=== PATIENT | male | born 1980 | race Caucasian/White ===

== ENCOUNTER 2017-10-06 23:02 | Emergency (ER) | payer MEDICAID ==
[~2017-10-06] VITALS: Ht 182.9 cm; Wt 143.5 kg
[~2017-10-06 23:02] MED LIST: RANI-366 PO
[2017-10-07 02:48] VITALS: BP 147/98
[2017-10-07] MEDS ORDERED: AMOX500C2 PO (03:56)
== END 2017-10-07 04:10 | disposition home or self-care (01) ==
LOC: ER 23:02
DX: K08.89 Other specified disorders of teeth and supporting structures (principal); Z88.5 Allergy status to narcotic agent; Z79.899 Other long term (current) drug therapy; Z56.0 Unemployment, unspecified
CPT/HCPCS: 99283

== ENCOUNTER 2017-10-14 09:41 | Emergency (ER) | payer MEDICAID ==
[~2017-10-14] VITALS: Ht 182.9 cm; Wt 136.4 kg
[~2017-10-14 09:41] MED LIST changes: +AMOX500C2 PO
[2017-10-14 09:45] VITALS: BP 158/79
== END 2017-10-14 10:18 | disposition home or self-care (01) ==
LOC: ER 09:42
DX: S61.213A Laceration without foreign body of left middle finger without damage to nail, initial encounter (principal); Z98.890 Other specified postprocedural states; Z56.0 Unemployment, unspecified; Z88.5 Allergy status to narcotic agent; Z79.899 Other long term (current) drug therapy; W26.0XXA Contact with knife, initial encounter; Y93.89 Activity, other specified; Y92.89 Other specified places as the place of occurrence of the external cause; Y99.8 Other external cause status
CPT/HCPCS: 12001; 99283; A6255

== ENCOUNTER 2017-11-18 20:33 | Emergency (ER) | payer MEDICAID ==
[~2017-11-18] VITALS: Ht 182.9 cm; Wt 149.2 kg
[~2017-11-18 20:33] MED LIST changes: -AMOX500C2 PO
[2017-11-18 22:07] VITALS: BP 165/115
[2017-11-18] MEDS ORDERED: acetaminophen 325mg tablet PO ONE (23:15)
== END 2017-11-18 23:30 | disposition home or self-care (01) ==
LOC: ER 20:34
DX: S46.012A Strain of muscle(s) and tendon(s) of the rotator cuff of left shoulder, initial encounter (principal); M75.22 Bicipital tendinitis, left shoulder; Z56.0 Unemployment, unspecified; Z98.890 Other specified postprocedural states; X58.XXXA Exposure to other specified factors, initial encounter; Y93.89 Activity, other specified; Y92.89 Other specified places as the place of occurrence of the external cause; Y99.8 Other external cause status
CPT/HCPCS: 29105; 99283; A4565; L3650

== ENCOUNTER 2018-01-27 11:17 | Emergency (ER) | payer MEDICAID ==
[~2018-01-27] VITALS: Ht 182.9 cm; Wt 150.0 kg
[~2018-01-27 11:17] MED LIST changes: +FLO0.4C PO; +METO25TA6 PO; +OXYC-150 PO; -RANI-366 PO
[2018-01-27 11:25] VITALS: BP 155/111
[2018-01-27] MEDS ORDERED: ketorolac tromethamine 15mg/ml inj. IM ONE (12:10)
[2018-01-27] MEDS ORDERED: NAPR-56 PO (12:14)
== END 2018-01-27 12:32 | disposition home or self-care (01) ==
LOC: ER 11:18
DX: M76.62 Achilles tendinitis, left leg (principal); Z56.0 Unemployment, unspecified; Z98.890 Other specified postprocedural states; Z88.5 Allergy status to narcotic agent; Z79.1 Long term (current) use of non-steroidal anti-inflammatories (NSAID); Z79.899 Other long term (current) drug therapy
CPT/HCPCS: 73630; 96372; 99284; J1885

== ENCOUNTER 2018-02-26 17:02 | Emergency (ER) | payer MEDICAID ==
[~2018-02-26] VITALS: Ht 182.9 cm; Wt 150.8 kg
[~2018-02-26 17:02] MED LIST changes: -FLO0.4C PO; +NAPR-56 PO
[2018-02-26 17:10] VITALS: BP 160/101
[2018-02-26] MEDS ORDERED: TOBR5DRO2 RIGHTEYE (17:24)
== END 2018-02-26 17:35 | disposition home or self-care (01) ==
LOC: ER 17:02
DX: H10.9 Unspecified conjunctivitis (principal); Z56.0 Unemployment, unspecified; Z87.442 Personal history of urinary calculi; Z88.6 Allergy status to analgesic agent
CPT/HCPCS: 99283

== ENCOUNTER 2018-06-11 19:57 | Emergency (ER) | payer MEDICAID ==
[~2018-06-11] VITALS: Ht 182.9 cm; Wt 147.0 kg
[~2018-06-11 19:57] MED LIST changes: -NAPR-56 PO; +TOBR5DRO2 RIGHTEYE
[2018-06-11 20:11] VITALS: BP 146/103
[2018-06-11] MEDS ORDERED: IBUP-1985 PO (21:43)
== END 2018-06-11 22:05 | disposition home or self-care (01) ==
LOC: ER 19:59
DX: S90.32XA Contusion of left foot, initial encounter (principal); Z98.890 Other specified postprocedural states; Z56.0 Unemployment, unspecified; Z88.5 Allergy status to narcotic agent; Z79.899 Other long term (current) drug therapy; X58.XXXA Exposure to other specified factors, initial encounter; Y93.89 Activity, other specified; Y92.89 Other specified places as the place of occurrence of the external cause; Y99.8 Other external cause status
CPT/HCPCS: 73630; 99283

== ENCOUNTER 2018-08-19 18:51 | Emergency (ER) | payer MEDICAID ==
[~2018-08-19] VITALS: Ht 182.9 cm; Wt 119.0 kg
[~2018-08-19 18:51] MED LIST changes: +IBUP-1985 PO
[2018-08-19 19:00] VITALS: BP 157/109
[2018-08-19] MEDS ORDERED: ketorolac trometh inj. 60 MG/2 ML VIAL IM ONE (20:50)
== END 2018-08-19 21:06 | disposition home or self-care (01) ==
LOC: ER 18:52
DX: M25.561 Pain in right knee (principal); Z56.0 Unemployment, unspecified; Z88.6 Allergy status to analgesic agent
CPT/HCPCS: 73564; 96372; 99284; J1885

== ENCOUNTER 2019-01-06 14:30 | Emergency (ER) | payer MEDICAID ==
[~2019-01-06] VITALS: Ht 182.9 cm; Wt 145.4 kg
[~2019-01-06 14:30] MED LIST changes: -IBUP-1985 PO; -METO25TA6 PO; +NO HOME MEDS; -OXYC-150 PO; -TOBR5DRO2 RIGHTEYE
[2019-01-06] MEDS ORDERED: ketorolac trometh. 30mg/ml inj. IM ONE (15:00)
[2019-01-06 15:19] LABS: BASOPHILS # (AUTO) 0.1 X10'3 (0-0.2); BASOPHILS % (AUTO) 0.8 % (0-1); EOSINOPHILS # (AUTO) 0.1 X10'3 (0-0.9); EOSINOPHILS % (AUTO) 1.3 % (0-6); HEMATOCRIT 45.8 % (42.0-52.0); HEMOGLOBIN 15.5 g/dl (14.0-17.9); LYMPHOCYTES # (AUTO) 1.6 X10'3 (1.1-4.8); LYMPHOCYTES % (AUTO) 17.1 % (21-51); MEAN CORPUSCULAR HEMOGLOBIN 28.9 PG (27.0-31.0); MEAN CORPUSCULAR HGB CONC 33.9 g/dL (33.0-36.5); MEAN CORPUSCULAR VOLUME 85.2 FL (78-98); MEAN PLATELET VOLUME 9.7 FL (7.4-10.4); MONOCYTES # (AUTO) 1.2 X10'3 (0-0.9); MONOCYTES % (AUTO) 12.1 % (2-12); NEUTROPHILS # (AUTO) 6.6 X10'3 (1.8-7.7); NEUTROPHILS % (AUTO) 68.7 % (42-75); PLATELET COUNT 166 X10'3 (140-440); RED BLOOD COUNT 5.38 X10'6 (4.70-6.10); WHITE BLOOD COUNT 9.6 X10'3 (4.5-11.0)
[2019-01-06] MEDS ORDERED: normal saline 1000ML IV soln IVB ONE (15:20)
[2019-01-06 15:32] LABS: ALANINE AMINOTRANSFERASE 64 U/L (12-78); ALBUMIN 3.6 G/DL (3.4-5.0); ALBUMIN/GLOBULIN RATIO 0.9 (1.1-1.5); ALKALINE PHOSPHATASE 77 IU/L (46-116); ANION GAP 9 (8-16); ASPARTATE AMINO TRANSFERASE 15 U/L (10-37); BILIRUBIN,TOTAL 0.4 MG/DL (0.1-1.0); BLOOD UREA NITROGEN 15 MG/DL (7-18); BUN/CREATININE RATIO 16.3 (5.4-32.0); CALCIUM 9.3 MG/DL (8.5-10.1); CHLORIDE 101 MMOL/L (99-107); CREATININE 0.92 MG/DL (0.60-1.10); GLUCOSE 114 MG/DL (70-104); POTASSIUM 4.3 MMOL/L (3.5-5.1); SODIUM 137 MMOL/L (135-145); TOTAL CARBON DIOXIDE 26.8 MMOL/L (24-32); TOTAL PROTEIN 7.7 G/DL (6.4-8.2); eGFR > 90 ML/MIN
[2019-01-06] MEDS ORDERED: BENZ-16 PO (15:38)
[2019-01-06 16:11] VITALS: BP 130/80
== END 2019-01-06 16:12 | disposition home or self-care (01) ==
LOC: ER 14:31
DX: R07.89 Other chest pain (principal); R05 Cough; R09.3 Abnormal sputum; R06.02 Shortness of breath; F10.99 Alcohol use, unspecified with unspecified alcohol-induced disorder; Z87.442 Personal history of urinary calculi; Z98.890 Other specified postprocedural states; Z88.5 Allergy status to narcotic agent; Z56.0 Unemployment, unspecified; Y90.9 Presence of alcohol in blood, level not specified
CPT/HCPCS: 36415; 71046; 80053; 83605; 85025; 87040; 93005; 96372; 99284; J1885; J7030

== ENCOUNTER 2019-03-15 12:25 | Emergency (ER) | payer MEDICAID ==
[~2019-03-15] VITALS: Ht 182.9 cm; Wt 147.7 kg
[2019-03-15] MEDS ORDERED: ketorolac tromethamine 15mg/ml inj. IM ONE (13:20)
[2019-03-15 13:39] VITALS: BP 139/91
== END 2019-03-15 13:46 | disposition home or self-care (01) ==
LOC: ER 12:26
DX: G57.61 Lesion of plantar nerve, right lower limb (principal); Z88.5 Allergy status to narcotic agent; Z87.442 Personal history of urinary calculi; Z98.890 Other specified postprocedural states; Z56.0 Unemployment, unspecified
CPT/HCPCS: 73630; 96372; 99283; J1885

== ENCOUNTER 2019-05-16 09:17 | Emergency (ER) | payer MEDICAID ==
[~2019-05-16] VITALS: Ht 182.9 cm; Wt 139.0 kg
[2019-05-16] MEDS ORDERED: LIDOcaine 1% w/EPI 1:200,000 injection 10mL vial IM ONE (09:45)
--- NOTE | 2019-05-16 09:46 | NUR ---
CALLED PHARMACY TO CHANGE LIDOCAINE TO STOCKED MEDICATION.
[2019-05-16] MEDS ORDERED: LIDOcaine 1% 30ml preserv. free vial IJ ONE ×2 (09:50)
[2019-05-16] MEDS ORDERED: AMOX-422 PO (10:03)
--- NOTE | 2019-05-16 10:16 | NUR ---
PT TO XRAY
--- NOTE | 2019-05-16 10:18 | NUR ---
PT BACK FROM XRAY
[2019-05-16 10:32] VITALS: BP 168/101
== END 2019-05-16 11:06 | disposition home or self-care (01) ==
LOC: ER 09:18
DX: S61.411A Laceration without foreign body of right hand, initial encounter (principal); Z56.0 Unemployment, unspecified; Z87.442 Personal history of urinary calculi; Z98.890 Other specified postprocedural states; Z88.5 Allergy status to narcotic agent; W54.0XXA Bitten by dog, initial encounter; Y93.89 Activity, other specified; Y92.89 Other specified places as the place of occurrence of the external cause; Y99.9 Unspecified external cause status
CPT/HCPCS: 12002; 73130; 99284; J2001

== ENCOUNTER 2019-05-18 08:42 | Emergency (ER) | payer MEDICAID ==
[~2019-05-18] VITALS: Ht 182.9 cm; Wt 143.0 kg
[~2019-05-18 08:42] MED LIST changes: +AMOX-422 PO
[2019-05-18] MEDS ORDERED: ketorolac tromethamine 15mg/ml inj. IM ONE (09:15)
[2019-05-18] MEDS ORDERED: metroNIDAZOLE-Flagyl 500mg/NS 100 ML IV ONE (09:15)
[2019-05-18] MEDS ORDERED: CefTRIAXone/D5W-Rocephin 1gm 50 ML IV ONE (09:15)
[2019-05-18 09:45] LABS: BASOPHILS # (AUTO) 0.1 X10'3 (0-0.2); BASOPHILS % (AUTO) 0.8 % (0-1); EOSINOPHILS # (AUTO) 0.1 X10'3 (0-0.9); EOSINOPHILS % (AUTO) 0.8 % (0-6); HEMATOCRIT 44.4 % (42.0-52.0); HEMOGLOBIN 15.4 g/dl (14.0-17.9); LYMPHOCYTES # (AUTO) 1.1 X10'3 (1.1-4.8); LYMPHOCYTES % (AUTO) 14.3 % (21-51); MEAN CORPUSCULAR HEMOGLOBIN 29.8 PG (27.0-31.0); MEAN CORPUSCULAR HGB CONC 34.7 g/dL (33.0-36.5); MEAN CORPUSCULAR VOLUME 85.8 FL (78-98); MEAN PLATELET VOLUME 9.9 FL (7.4-10.4); MONOCYTES # (AUTO) 0.8 X10'3 (0-0.9); MONOCYTES % (AUTO) 9.8 % (2-12); NEUTROPHILS # (AUTO) 5.7 X10'3 (1.8-7.7); NEUTROPHILS % (AUTO) 74.3 % (42-75); PLATELET COUNT 149 X10'3 (140-440); RED BLOOD COUNT 5.18 X10'6 (4.70-6.10); RED CELL DISTRIBUTION WIDTH 14.5 % (11.5-14.5); WHITE BLOOD COUNT 7.7 X10'3 (4.5-11.0)
[2019-05-18] MEDS ORDERED: ketorolac trometh. 30mg/ml inj. IV ONE (09:45)
[2019-05-18 09:54] LABS: ALANINE AMINOTRANSFERASE 64 U/L (12-78); ALBUMIN 3.7 G/DL (3.4-5.0); ALBUMIN/GLOBULIN RATIO 0.9 (1.1-1.5); ALKALINE PHOSPHATASE 69 IU/L (46-116); ANION GAP 13 (8-16); ASPARTATE AMINO TRANSFERASE 18 U/L (10-37); BILIRUBIN,TOTAL 0.4 MG/DL (0.1-1.0); BLOOD UREA NITROGEN 12 MG/DL (7-18); BUN/CREATININE RATIO 12.6 (5.4-32.0); CALCIUM 9.2 MG/DL (8.5-10.1); CHLORIDE 103 MMOL/L (99-107); CREATININE 0.95 MG/DL (0.60-1.10); GLUCOSE 120 MG/DL (70-104); POTASSIUM 4.2 MMOL/L (3.5-5.1); SODIUM 141 MMOL/L (135-145); TOTAL CARBON DIOXIDE 25.5 MMOL/L (24-32); TOTAL PROTEIN 7.7 G/DL (6.4-8.2); eGFR 89 ML/MIN
[2019-05-18] MEDS ORDERED: ketorolac tromethamine 15mg/ml inj. IV ONE (10:00)
[2019-05-18] MEDS ORDERED: DOXY100C2 PO (10:22)
[2019-05-18] MEDS ORDERED: OXYC-145 PO (10:26)
[2019-05-18 11:22] VITALS: BP 144/82
[2019-05-18] MEDS ORDERED: L. R1CAP4 PO (11:25)
== END 2019-05-18 11:27 | disposition home or self-care (01) ==
LOC: ER 08:43
DX: S61.411D Laceration without foreign body of right hand, subsequent encounter (principal); Z87.442 Personal history of urinary calculi; Z56.0 Unemployment, unspecified; Z88.5 Allergy status to narcotic agent; Z79.899 Other long term (current) drug therapy; W54.0XXD Bitten by dog, subsequent encounter
CPT/HCPCS: 36415; 80053; 83605; 84145; 85025; 96365; 96367; 99283; J0696; J3490; J1885

== ENCOUNTER 2019-05-19 18:43 | Emergency (ER) | payer MEDICAID ==
[~2019-05-19] VITALS: Ht 182.9 cm; Wt 145.4 kg
[~2019-05-19 18:43] MED LIST changes: +DOXY100C2 PO; +L. R1CAP4 PO; +OXYC-145 PO
[2019-05-19] MEDS ORDERED: piperacillin/tazo 3.375gm/50ml 50 ML IV ONE (19:35)
[2019-05-19] MEDS ORDERED: ketorolac tromethamine 15mg/ml inj. IV ONE (19:55)
[2019-05-19] MEDS ORDERED: vancomycin/NS 1 GM ADD-VANTAGE 250 ML X 1 DOSE IV ONE ×2 (20:00→21:30)
[2019-05-19 20:13] LABS: BASOPHILS % (AUTO) 0.4 % (0-1); EOSINOPHILS # (AUTO) 0.1 X10'3 (0-0.9); EOSINOPHILS % (AUTO) 1.8 % (0-6); HEMATOCRIT 44.1 % (42.0-52.0); HEMOGLOBIN 15.2 g/dl (14.0-17.9); LYMPHOCYTES # (AUTO) 1.5 X10'3 (1.1-4.8); MEAN CORPUSCULAR HEMOGLOBIN 29.9 PG (27.0-31.0); MEAN CORPUSCULAR HGB CONC 34.5 g/dL (33.0-36.5); MEAN CORPUSCULAR VOLUME 86.5 FL (78-98); MEAN PLATELET VOLUME 10.2 FL (7.4-10.4); MONOCYTES # (AUTO) 0.7 X10'3 (0-0.9); MONOCYTES % (AUTO) 10.9 % (2-12); NEUTROPHILS # (AUTO) 4.3 X10'3 (1.8-7.7); NEUTROPHILS % (AUTO) 63.9 % (42-75); PLATELET COUNT 158 X10'3 (140-440); RED BLOOD COUNT 5.09 X10'6 (4.70-6.10); RED CELL DISTRIBUTION WIDTH 14.6 % (11.5-14.5); WHITE BLOOD COUNT 6.7 X10'3 (4.5-11.0)
[2019-05-19 20:26] LABS: ALANINE AMINOTRANSFERASE 58 U/L (12-78); ALBUMIN 3.8 G/DL (3.4-5.0); ALBUMIN/GLOBULIN RATIO 0.9 (1.1-1.5); ALKALINE PHOSPHATASE 72 IU/L (46-116); ANION GAP 9 (8-16); ASPARTATE AMINO TRANSFERASE 23 U/L (10-37); BILIRUBIN,TOTAL 0.4 MG/DL (0.1-1.0); BLOOD UREA NITROGEN 11 MG/DL (7-18); BUN/CREATININE RATIO 12.1 (5.4-32.0); CALCIUM 8.9 MG/DL (8.5-10.1); CHLORIDE 104 MMOL/L (99-107); CREATININE 0.91 MG/DL (0.60-1.10); GLUCOSE 100 MG/DL (70-104); POTASSIUM 4.1 MMOL/L (3.5-5.1); SODIUM 139 MMOL/L (135-145); TOTAL CARBON DIOXIDE 25.9 MMOL/L (24-32); TOTAL PROTEIN 8.1 G/DL (6.4-8.2); eGFR > 90 ML/MIN
[2019-05-20] VITALS: BP 151/101
== END 2019-05-20 00:02 | disposition home or self-care (01) ==
LOC: ER 18:43
DX: L03.113 Cellulitis of right upper limb (principal); F10.99 Alcohol use, unspecified with unspecified alcohol-induced disorder; Z87.442 Personal history of urinary calculi; Z56.0 Unemployment, unspecified; Z88.5 Allergy status to narcotic agent; Z79.899 Other long term (current) drug therapy; Y90.9 Presence of alcohol in blood, level not specified
CPT/HCPCS: 36415; 80053; 85025; 96365; 96366; 96367; 96368; 99284; J1885; J2543; J3370

== ENCOUNTER 2019-05-20 09:32 | Emergency (ER) | payer MEDICAID ==
[~2019-05-20] VITALS: Ht 182.9 cm; Wt 145.4 kg
[2019-05-20 09:49] VITALS: BP 177/117
== END 2019-05-20 09:54 | disposition home or self-care (01) ==
LOC: ER 09:33
DX: S61.411D Laceration without foreign body of right hand, subsequent encounter (principal); S61.511D Laceration without foreign body of right wrist, subsequent encounter; S61.431D Puncture wound without foreign body of right hand, subsequent encounter; F10.99 Alcohol use, unspecified with unspecified alcohol-induced disorder; Z87.442 Personal history of urinary calculi; Z98.890 Other specified postprocedural states; Z72.89 Other problems related to lifestyle; Z56.0 Unemployment, unspecified; Z88.5 Allergy status to narcotic agent; Z79.2 Long term (current) use of antibiotics; Z79.4 Long term (current) use of insulin; Z79.899 Other long term (current) drug therapy; Y90.9 Presence of alcohol in blood, level not specified; W54.0XXD Bitten by dog, subsequent encounter
CPT/HCPCS: 99281

== ENCOUNTER 2019-05-24 11:36 | Emergency (ER) | payer MEDICAID ==
[~2019-05-24] VITALS: Ht 182.9 cm; Wt 145.4 kg
[2019-05-24 11:38] VITALS: BP 145/93
== END 2019-05-24 12:45 | disposition home or self-care (01) ==
LOC: ER 11:36
DX: S61.411D Laceration without foreign body of right hand, subsequent encounter (principal); F10.99 Alcohol use, unspecified with unspecified alcohol-induced disorder; W54.0XXD Bitten by dog, subsequent encounter; Z87.442 Personal history of urinary calculi; Z98.890 Other specified postprocedural states; Z56.0 Unemployment, unspecified; Z88.5 Allergy status to narcotic agent; Z79.899 Other long term (current) drug therapy; Y90.9 Presence of alcohol in blood, level not specified
CPT/HCPCS: 99281

== ENCOUNTER 2019-05-27 18:35 | Emergency (ER) | payer MEDICAID ==
[~2019-05-27] VITALS: Ht 182.9 cm; Wt 145.4 kg
[~2019-05-27 18:35] MED LIST changes: -AMOX-422 PO; -DOXY100C2 PO
[2019-05-27 18:41] VITALS: BP 139/99
--- NOTE | 2019-05-27 19:06 | NUR ---
Discussed pt's c/o of abdominal discomfort post abx administration with TAVON Wright. New orders received for GI cocktail.
[2019-05-27] MEDS ORDERED: LIDOcaine Viscous 15ml cup MM PRN (19:10)
[2019-05-27] MEDS ORDERED: ondansetron 4mg rapidly disintigrating tab PO ONE (19:10)
[2019-05-27] MEDS ORDERED: magnesium hydroxide 30ml (MOM) UD suspension PO ONE (19:10)
[2019-05-27] MEDS ORDERED: MAG355OR18 PO (20:15)
[2019-05-27] MEDS ORDERED: FAMO-128 PO (20:15)
== END 2019-05-27 20:22 | disposition home or self-care (01) ==
LOC: ER 18:37
DX: R10.13 Epigastric pain (principal); R11.0 Nausea; F10.99 Alcohol use, unspecified with unspecified alcohol-induced disorder; Z87.442 Personal history of urinary calculi; Z98.890 Other specified postprocedural states; Z56.0 Unemployment, unspecified; Z88.5 Allergy status to narcotic agent; Z79.899 Other long term (current) drug therapy; Y90.9 Presence of alcohol in blood, level not specified
CPT/HCPCS: 93005; 99284

== ENCOUNTER 2019-09-20 01:14 | Emergency (ER) | payer MEDICAID ==
[~2019-09-20] VITALS: Ht 182.9 cm; Wt 145.4 kg
[~2019-09-20 01:14] MED LIST changes: +FAMO-128 PO
[2019-09-20] MEDS ORDERED: ketorolac trometh inj. 60 MG/2 ML VIAL IM ONE (01:25)
[2019-09-20] MEDS ORDERED: OXYC-150 PO (02:05)
[2019-09-20 02:51] VITALS: BP 154/108
== END 2019-09-20 02:52 | disposition home or self-care (01) ==
LOC: ER 01:15
DX: S40.021A Contusion of right upper arm, initial encounter (principal); Z87.442 Personal history of urinary calculi; Z72.89 Other problems related to lifestyle; Z56.0 Unemployment, unspecified; Z98.890 Other specified postprocedural states; Z88.5 Allergy status to narcotic agent; Z79.899 Other long term (current) drug therapy; W11.XXXA Fall on and from ladder, initial encounter; Y93.89 Activity, other specified; Y92.89 Other specified places as the place of occurrence of the external cause; Y99.8 Other external cause status
CPT/HCPCS: 73060; 96372; 99283; J1885

== ENCOUNTER 2020-04-21 05:48 | Day surgery (SDC) | payer MEDICAID ==
[2020-04-15 14:31] LABS: BASOPHILS % (AUTO) 0.6 % (0-1); EOSINOPHILS # (AUTO) 0.1 X10'3 (0-0.9); EOSINOPHILS % (AUTO) 2.2 % (0-6); LYMPHOCYTES # (AUTO) 1.7 X10'3 (1.1-4.8); LYMPHOCYTES % (AUTO) 27.6 % (21-51); MEAN CORPUSCULAR HEMOGLOBIN 29.2 PG (27.0-31.0); MEAN CORPUSCULAR HGB CONC 34.3 g/dL (33.0-36.5); MEAN CORPUSCULAR VOLUME 85.1 FL (78-98); MONOCYTES # (AUTO) 0.6 X10'3 (0-0.9); NEUTROPHILS # (AUTO) 3.6 X10'3 (1.8-7.7); NEUTROPHILS % (AUTO) 59.6 % (42-75); PRE OP HEMATOCRIT 44.6 % (42.0-52.0); PRE OP HEMOGLOBIN 15.3 g/dL (14.0-17.9); PRE OP PLATELET COUNT 153 X10'3 (140-440); RED BLOOD COUNT 5.24 X10'6 (4.70-6.10); RED CELL DISTRIBUTION WIDTH 13.9 % (11.5-14.5)
[2020-04-15 14:50] LABS: ALBUMIN 3.8 G/DL (3.4-5.0); ALKALINE PHOSPHATASE 79 IU/L (46-116); BLOOD UREA NITROGEN 9 MG/DL (7-18); BUN/CREATININE RATIO 8.5 (5.4-32.0); CALCIUM 8.9 MG/DL (8.5-10.1); CHLORIDE 109 MMOL/L (99-107); CREATININE 1.06 MG/DL (0.60-1.10); PRE OP ALT 71 U/L (30-65); PRE OP ANION GAP 9 (8-16); PRE OP AST 29 U/L (10-37); PRE OP BILIRUB, TOTAL 0.3 MG/DL (0.0-1.0); PRE OP GLUCOSE 121 MG/DL (70-104); PRE OP SODIUM 144 MMOL/L (135-145); TOTAL CARBON DIOXIDE 25.8 MMOL/L (24-32); TOTAL PROTEIN 7.6 G/DL (6.4-8.2); eGFR 78 ML/MIN
[2020-04-21] VITALS (9 sets, daily range): BP systolic 101–142; BP diastolic 70–95
[~2020-04-21] VITALS: Ht 182.9 cm; Wt 136.1 kg
[~2020-04-21 05:48] MED LIST changes: +AMIT25TA9 PO; +BUPR-353 PO; -FAMO-128 PO; -L. R1CAP4 PO; -NO HOME MEDS; +NORMAL SALINE IV ONE; -OXYC-145 PO; +TRANEXAMIC ACID IV ONE; +ceFAZolin inj. 3,000 MG in normal saline 100ml IV soln 100 ML IV ONE; +famotidine 20mg tablet PO ONE; +ringers solution, lacted 1,000 ML IV SCH
[2020-04-21] MEDS ORDERED: TRANEXAMIC ACID IV ONE ×4 (06:00)
[2020-04-21] MEDS ORDERED: NORMAL SALINE IV ONE ×4 (06:00)
[2020-04-21] MEDS ORDERED: LIDOcaine 1% (10mg/ml) 2ml vial ONE (06:07)
[2020-04-21] MEDS ORDERED: BUPIVAcaine/PF 2.5mg/ml (0.25%) 10ml vial ONE (06:46)
[2020-04-21] MEDS ORDERED: midazolam 2 mg/2 ml injection ONE (07:01)
[2020-04-21] MEDS ORDERED: fentaNYL /PF 50mcg/ml 5ml ampule ONE (07:01)
[2020-04-21] MEDS ORDERED: propofol inj 20 ML IV ONE (07:03)
[2020-04-21] MEDS ORDERED: LIDOcaine 2% (20mg/ml) 5ml vial ONE (07:03)
[2020-04-21] MEDS ORDERED: dexamethasone sod phosphate 4mg/ml inj. ONE (07:03)
[2020-04-21] MEDS ORDERED: ROPIVAcaine 0.5% (5mg/ml) 30ml vial ONE (07:05)
[2020-04-21] MEDS ORDERED: ondansetron/PF 4mg/2ml inj ONE (07:05)
[2020-04-21] MEDS ORDERED: sevoflurane 250ml liquid IH ONE (07:08)
[2020-04-21] MEDS ORDERED: ondansetron/PF 4mg/2ml inj IV PRN (07:10)
[2020-04-21] MEDS ORDERED: ringers solution, lacted 1,000 ML IV SCH (07:10)
[2020-04-21] MEDS ORDERED: morphine 4 MG/ML inj SYRINge IV PRN (07:10)
[2020-04-21] MEDS ORDERED: hydrALAZINE 20mg/ml inj. IV PRN (07:10)
[2020-04-21] MEDS ORDERED: labetalol 20mg/4ml (5mg/ml) syringe IV PRN (07:10)
[2020-04-21] MEDS ORDERED: fentaNYL/PF 50MCG/1 ML 2ML syringe IV PRN ×2 (07:10)
[2020-04-21] MEDS ORDERED: morphine 2 MG/ML inj. syringe IV PRN (07:10)
[2020-04-21] MEDS ORDERED: ROPIVAcaine 0.2%/PF PUMP/bolus 550 ML INTERSCALE SCH (08:00)
[2020-04-21] MEDS ORDERED: ROPIVAcaine 0.2% (10 MG/5 ML) BOLUS INJECTION INTERSCALE PRN (08:00)
[2020-04-21] MEDS ORDERED: morphine 10mg/ml inj. ONE ×2 (08:45)
[2020-04-21] MEDS ORDERED: ketorolac trometh. 30mg/ml inj. ONE (08:46)
[2020-04-21] MEDS ORDERED: HYDROcodone/acetaminophen 10/325mg tab PO PRN (09:50)
--- NOTE | 2020-04-21 09:50 | NUR ---
Received from OR via , accompanied by Anesthesiologist DR VASQUEZ and report given by Anesthesiolgist. AWAKENS TO VOICE. VITALS STABLE. DRESSING DI. ALEX PAIN. UNABLE TO MOVE RUE. IMMOBILIZER SLING TO RUE. FINGERS WARM AND PINK.
--- NOTE | 2020-04-21 11:10 | NUR ---
AWAKE AND ORIENTED. VITALS STABLE. DRESSING DI. ALEX PAIN. INSTRUCTIONS FOR ON Q GIVEN,WITH UNDERSTANDING VERBALIZED. HOME WITH HIS MOM AT THIS TIME.
== END 2020-04-21 11:10 | disposition home or self-care (01) ==
LOC: PAS 05:48
PROVIDERS: ATTEND Orthopaedic Surgery
DX: M75.121 Complete rotator cuff tear or rupture of right shoulder, not specified as traumatic (principal); M75.21 Bicipital tendinitis, right shoulder; M19.011 Primary osteoarthritis, right shoulder; M75.51 Bursitis of right shoulder; F98.8 Other specified behavioral and emotional disorders with onset usually occurring in childhood and adolescence; F32.9 Major depressive disorder, single episode, unspecified; G89.18 Other acute postprocedural pain; E66.01 Morbid (severe) obesity due to excess calories; Z68.41 Body mass index [BMI] 40.0-44.9, adult; Z88.8 Allergy status to other drugs, medicaments and biological substances; Z88.5 Allergy status to narcotic agent; Z98.890 Other specified postprocedural states; Z72.89 Other problems related to lifestyle; Z79.899 Other long term (current) drug therapy; Z20.828 Contact with and (suspected) exposure to other viral communicable diseases
CPT/HCPCS: 29824; 29826; 29827; 29828; 36415; 64416; 76937; 80053; 82948; 85025; 87635; 93005; C1713; J0690; J1100; J1885; J2001; J2250; J2270; J2405; J2704; J2795; J3010; J3490; A4565; A4618; A6449; A7000; J7120

== ENCOUNTER 2020-05-25 19:51 | Emergency (ER) | payer MEDICAID ==
[~2020-05-25] VITALS: Ht 182.9 cm; Wt 138.6 kg
[~2020-05-25 19:51] MED LIST changes: -NORMAL SALINE IV ONE; -TRANEXAMIC ACID IV ONE; -ceFAZolin inj. 3,000 MG in normal saline 100ml IV soln 100 ML IV ONE; -famotidine 20mg tablet PO ONE; -ringers solution, lacted 1,000 ML IV SCH
[2020-05-25] MEDS ORDERED: ketorolac trometh inj. 60 MG/2 ML VIAL IM ONE (20:05)
[2020-05-25 20:27] VITALS: BP 142/98
== END 2020-05-25 20:35 | disposition home or self-care (01) ==
LOC: ER 19:51
DX: G89.18 Other acute postprocedural pain (principal); M25.511 Pain in right shoulder; Z98.890 Other specified postprocedural states; Z87.442 Personal history of urinary calculi; Z56.0 Unemployment, unspecified; Z88.8 Allergy status to other drugs, medicaments and biological substances; Z79.899 Other long term (current) drug therapy
CPT/HCPCS: 96372; 99283; J1885

== ENCOUNTER 2021-01-16 20:16 | Emergency (ER) | payer MEDICAID ==
[~2021-01-16] VITALS: Ht 182.9 cm; Wt 136.4 kg
[2021-01-16] MEDS ORDERED: diphenhydrAMINE 50 mg/ml inj IV ONE (21:30)
[2021-01-16] MEDS ORDERED: proCHLORperazine 10 MG/2 ml inj IV ONE (21:30)
[2021-01-16] MEDS ORDERED: ketorolac trometh. 30mg/ml inj. IV ONE (21:30)
[2021-01-16] MEDS ORDERED: normal saline 1000ml 1,000 ML IV ONE (21:30)
[2021-01-16 22:04] VITALS: BP 129/71
== END 2021-01-16 22:50 | disposition home or self-care (01) ==
LOC: ER 20:16
DX: R51.9 Headache, unspecified (principal); Z87.442 Personal history of urinary calculi; Z56.0 Unemployment, unspecified
CPT/HCPCS: 96361; 96374; 96375; 99284; J0780; J1200; J1885; J7030

== ENCOUNTER 2021-04-18 06:04 | Inpatient (IN) | payer MEDICAID ==
[~2021-04-18] VITALS: Ht 182.9 cm; Wt 154.5 kg
[2021-04-18] MEDS ORDERED: normal saline 1000ML IV soln IVB ONE (06:30)
[2021-04-18] MEDS ORDERED: ketorolac trometh. 30mg/ml inj. IV ONE (06:30)
[2021-04-18 06:57] LABS: BASOPHILS % (AUTO) 0.6 % (0-1); EOSINOPHILS # (AUTO) 0.2 X10'3 (0-0.9); HEMATOCRIT 45.1 % (42.0-52.0); HEMOGLOBIN 15.6 g/dl (14.0-17.9); LYMPHOCYTES # (AUTO) 1.6 X10'3 (1.1-4.8); LYMPHOCYTES % (AUTO) 29.8 % (21-51); MEAN CORPUSCULAR HEMOGLOBIN 29.5 PG (27.0-31.0); MEAN CORPUSCULAR HGB CONC 34.6 g/dL (33.0-36.5); MEAN CORPUSCULAR VOLUME 85.1 FL (78-98); MEAN PLATELET VOLUME 9.9 FL (7.4-10.4); MONOCYTES # (AUTO) 0.5 X10'3 (0-0.9); MONOCYTES % (AUTO) 9.9 % (2-12); NEUTROPHILS # (AUTO) 3.1 X10'3 (1.8-7.7); NEUTROPHILS % (AUTO) 55.7 % (42-75); PLATELET COUNT 154 X10'3 (140-440); RED CELL DISTRIBUTION WIDTH 14.4 % (11.5-14.5); WHITE BLOOD COUNT 5.5 X10'3 (4.5-11.0)
[2021-04-18 07:14] LABS: ALANINE AMINOTRANSFERASE 103 U/L (12-78); ALBUMIN 3.7 G/DL (3.4-5.0); ALBUMIN/GLOBULIN RATIO 0.9 (1.1-1.5); ALKALINE PHOSPHATASE 68 IU/L (46-116); ANION GAP 13 (8-16); ASPARTATE AMINO TRANSFERASE 45 U/L (10-37); BILIRUBIN,TOTAL 0.3 MG/DL (0.1-1.0); BLOOD UREA NITROGEN 8 MG/DL (7-18); CALCIUM 9.1 MG/DL (8.5-10.1); CHLORIDE 106 MMOL/L (99-107); GLUCOSE 178 MG/DL (70-104); POTASSIUM 3.9 MMOL/L (3.5-5.1); SODIUM 141 MMOL/L (135-145); TOTAL CARBON DIOXIDE 21.8 MMOL/L (24-32); TOTAL PROTEIN 7.7 G/DL (6.4-8.2); eGFR 83 ML/MIN
[2021-04-18 07:22] LABS: LIPASE 144 U/L (73-393)
[2021-04-18 07:23] LABS: ETHANOL < 0.010 GM/DL (0.0-0.010)
[2021-04-18 10:07] LABS: CLARITY,URINE CLEAR (Clear); COLOR,URINE YELLOW (Yellow); GLUCOSE, URINE NEGATIVE (Neg); KETONES,URINE NEGATIVE (Neg); LEUKOCYTE ESTERASE ,URINE NEGATIVE (Neg); NITRITES, URINE NEGATIVE (Neg); OCCULT BLOOD,URINE NEGATIVE (Neg); PROTEIN,URINE NEGATIVE (Neg); UA COLLECTION TYPE CLN CATCH MIDSTREAM; UROBILINOGEN,URINE 0.2 E.U/dL (0.2-1.0)
[2021-04-18 10:12] LABS: URINE AMPHETAMINE SCREEN NEGATIVE (Neg); URINE BARBITUATE SCREEN NEGATIVE (Neg); URINE BENZODIAZEPINES SCREEN NEGATIVE (Neg); URINE CANNABINOID SCREEN NEGATIVE (Neg); URINE COCAINE SCREEN NEGATIVE (Neg); URINE METHADONE SCREEN NEGATIVE (Neg); URINE OPIATE SCREEN NEGATIVE (Neg); URINE PHENCYCLIDINE SCREEN NEGATIVE (Neg)
[2021-04-18] MEDS ORDERED: piperacillin/tazo 3.375gm/50ml 50 ML IV ONE (11:55)
[2021-04-18 12:29] VITALS: BP 137/90
[2021-04-18] MEDS ORDERED: ondansetron/PF 4mg/2ml inj IV PRN (12:50)
[2021-04-18] MEDS ORDERED: morphine 2 MG/ML inj. syringe IV PRN ×2 (12:50)
[2021-04-18] MEDS ORDERED: mag hydrox/Alum hydrox/simeth 30ml oral suspension PO PRN (12:50)
[2021-04-18] MEDS ORDERED: dextrose 5%-1/2 normal saline 1,000 ML IV SCH (12:50)
[2021-04-18] MEDS ORDERED: acetaminophen 325mg tablet PO PRN ×2 (12:50)
[2021-04-18] MEDS ORDERED: magnesium hydroxide 30ml (MOM) UD suspension PO PRN (12:50)
[2021-04-18] MEDS ORDERED: BUPR300T53 PO (12:51)
[2021-04-18] MEDS ORDERED: OXYC-145 PO ×2 (14:05)
[2021-04-18] MEDS ORDERED: docusate sod 100mg capsule PO SCH (20:00)
== END 2021-04-18 16:16 | disposition home or self-care (01) ==
LOC: ER 06:04 → ED HOLD 13:01 → EDBEDREQ 14:16
PROVIDERS: ADMIT Internal Medicine; ATTEND Internal Medicine
DX: K80.01 Calculus of gallbladder with acute cholecystitis with obstruction (principal); K76.0 Fatty (change of) liver, not elsewhere classified; E66.01 Morbid (severe) obesity due to excess calories; F32.A Depression, unspecified; R74.01 Elevation of levels of liver transaminase levels; Z87.442 Personal history of urinary calculi; Z88.5 Allergy status to narcotic agent; Z56.0 Unemployment, unspecified; Z68.42 Body mass index [BMI] 45.0-49.9, adult
CPT/HCPCS: 36415; 71045; 74176; 76700; 80053; 80305; 80320; 81003; 83690; 83880; 84484; 85025; 93005; 96361; 96374; 99285; G0378; J1885; J2543; J7030

== ENCOUNTER 2021-04-21 08:12 | Day surgery (SDC) | payer MEDICAID ==
[2021-04-21] VITALS (11 sets, daily range): BP systolic 127–182; BP diastolic 75–121
[~2021-04-21] VITALS: Ht 182.9 cm; Wt 151.9 kg
[~2021-04-21 08:12] MED LIST changes: -AMIT25TA9 PO; -BUPR-353 PO; +BUPR300T53 PO; +ceFOXitin 2GM-NS 100mL ADDvant 100 ML IV ONE; +famotidine 20mg tablet PO ONE; +ringers solution, lacted 1,000 ML IV SCH
[2021-04-21] MEDS ORDERED: BUPIVAcaine/PF 2.5 mg/ml (0.25%) 30ml vial ONE (10:48)
[2021-04-21] MEDS ORDERED: ketorolac trometh. 30mg/ml inj. ONE (12:14)
[2021-04-21] MEDS ORDERED: sevoflurane 250ml liquid IH ONE (12:14)
[2021-04-21] MEDS ORDERED: midazolam 1 mg/ML 2ml injection ONE (12:20)
[2021-04-21] MEDS ORDERED: fentaNYL /PF 50mcg/ml 5ml ampule ONE (12:27)
[2021-04-21] MEDS ORDERED: propofol inj 20 ML IV ONE (12:30)
[2021-04-21] MEDS ORDERED: rocuronium 10mg/ml inj IV ONE (12:30)
[2021-04-21] MEDS ORDERED: LIDOcaine 2% (20mg/ml) 5ml vial ONE (12:31)
[2021-04-21] MEDS ORDERED: dexamethasone sod phosphate 4mg/ml inj. ONE (12:31)
[2021-04-21] MEDS ORDERED: ondansetron/PF 4mg/2ml inj ONE (12:31)
[2021-04-21] MEDS ORDERED: glycopyrrolate 0.2mg/ml inj ONE (13:01)
[2021-04-21] MEDS ORDERED: neostigmine methylsulfate 1 MG/ML 10ml vial ONE (13:01)
[2021-04-21] MEDS ORDERED: morphine 10mg/ml inj. ONE ×2 (13:06→13:09)
[2021-04-21] MEDS ORDERED: acetaminophen 1,000mg/100ml IV 100 ML IV ONE (13:07)
--- NOTE | 2021-04-21 13:15 | NUR ---
Received from OR via , accompanied by Anesthesiologist DR CHOWDHURY and report given by Anesthesiolgist. PT PRESENTS WITH 20G RIGHT HAND, ABD DRESSING ISLAND DRESSING DRY AND INTACT, VSS Addendum: 04/21/21 at 1326 by Queta Whiting RN, RN Amended: Links added.
[2021-04-21] MEDS ORDERED: meperidine/PF 25mg/ml syringe IV PRN (13:20)
[2021-04-21] MEDS ORDERED: proCHLORperazine 10 MG/2 ml inj IV PRN (13:20)
[2021-04-21] MEDS ORDERED: HYDROmorphone/PF 0.2 MG/ML SYRINGE IV PRN ×2 (13:20)
[2021-04-21] MEDS ORDERED: hydrALAZINE 20mg/ml inj. IV PRN (13:20)
[2021-04-21] MEDS ORDERED: acetaminophen 1,000mg/100ml IV 100 ML IV PRN (13:20)
[2021-04-21] MEDS ORDERED: morphine 4 MG/ML inj SYRINge IV PRN (13:20)
[2021-04-21] MEDS ORDERED: ondansetron/PF 4mg/2ml inj IV PRN (13:20)
[2021-04-21] MEDS ORDERED: morphine 2 MG/ML inj. syringe IV PRN (13:20)
[2021-04-21] MEDS ORDERED: labetalol 20mg/4ml (5mg/ml) syringe IV PRN (13:20)
[2021-04-21] MEDS ORDERED: ringers solution, lacted 1,000 ML IV SCH (13:20)
--- NOTE | 2021-04-21 14:35 | NUR ---
. I HAVE REVIEWED D/C INSTRUCTIONS WITH PATIENT and they have verbalized understanding patient d/c home with all belongings and family gave transport home. Addendum: 04/21/21 at 1452 by Queta Whiting RN, RN Amended: Links added.
== END 2021-04-21 14:35 | disposition home or self-care (01) ==
LOC: PAS 08:12
PROVIDERS: ATTEND Surgery
DX: K80.12 Calculus of gallbladder with acute and chronic cholecystitis without obstruction (principal); F32.9 Major depressive disorder, single episode, unspecified; E66.9 Obesity, unspecified; Z68.41 Body mass index [BMI] 40.0-44.9, adult; Z20.822 Contact with and (suspected) exposure to COVID-19; Z79.899 Other long term (current) drug therapy; Z88.5 Allergy status to narcotic agent; Z87.442 Personal history of urinary calculi; Z98.890 Other specified postprocedural states; Z72.89 Other problems related to lifestyle
CPT/HCPCS: 47562; 82948; 87635; C9803; J0131; J0694; J1100; J2001; J2250; J2270; J2405; J2704; J2710; J3010; J3490; J7120; Z7506; Z7508; Z7512; A4215; A4618; A7000; J1885

== ENCOUNTER 2021-05-06 07:34 | Emergency (ER) | payer MEDICAID ==
[~2021-05-06] VITALS: Ht 185.4 cm; Wt 124.3 kg
[~2021-05-06 07:34] MED LIST changes: -ceFOXitin 2GM-NS 100mL ADDvant 100 ML IV ONE; -famotidine 20mg tablet PO ONE; -ringers solution, lacted 1,000 ML IV SCH
[2021-05-06 08:01] VITALS: BP 146/101
[2021-05-06] MEDS ORDERED: AMOX-422 PO (09:19)
== END 2021-05-06 11:17 | disposition home or self-care (01) ==
LOC: ER 07:35
DX: T81.31XD Disruption of external operation (surgical) wound, not elsewhere classified, subsequent encounter (principal); Z87.442 Personal history of urinary calculi; Z90.49 Acquired absence of other specified parts of digestive tract; Z98.890 Other specified postprocedural states; Z72.89 Other problems related to lifestyle; Z56.0 Unemployment, unspecified; Z88.8 Allergy status to other drugs, medicaments and biological substances; Z79.2 Long term (current) use of antibiotics; Z79.899 Other long term (current) drug therapy; X58.XXXD Exposure to other specified factors, subsequent encounter
CPT/HCPCS: 99283

== ENCOUNTER 2023-03-07 18:33 | Emergency (ER) | payer MEDICAID ==
[~2023-03-07] VITALS: Ht 182.9 cm; Wt 145.9 kg
[2023-03-07 18:53] VITALS: TEMP 98.3
[2023-03-07] MEDS ORDERED: ketorolac trometh. 30mg/ml inj. IV ONE (19:10)
[2023-03-07] MEDS ORDERED: normal saline 1000ML IV soln IVB ONE ×2 (19:10→20:15)
[2023-03-07] MEDS ORDERED: ondansetron/PF 4mg/2ml inj IV ONE (19:15)
[2023-03-07 19:25] LABS: BASOPHILS % (AUTO) 0.2 % (0-1); EOSINOPHILS # (AUTO) 0.1 X10'3 (0-0.9); HEMATOCRIT 47.9 % (42.0-52.0); HEMOGLOBIN 16.3 g/dl (14.0-17.9); LYMPHOCYTES # (AUTO) 1.9 X10'3 (1.1-4.8); LYMPHOCYTES % (AUTO) 20.6 % (21-51); MEAN CORPUSCULAR HEMOGLOBIN 29.2 PG (27.0-31.0); MEAN CORPUSCULAR HGB CONC 34.1 g/dL (33.0-36.5); MEAN CORPUSCULAR VOLUME 85.7 FL (78-98); MEAN PLATELET VOLUME 9.4 FL (7.4-10.4); MONOCYTES # (AUTO) 0.8 X10'3 (0-0.9); MONOCYTES % (AUTO) 8.3 % (2-12); NEUTROPHILS # (AUTO) 6.4 X10'3 (1.8-7.7); NEUTROPHILS % (AUTO) 69.9 % (42-75); PLATELET COUNT 173 X10'3 (140-440); RED BLOOD COUNT 5.58 X10'6 (4.70-6.10); RED CELL DISTRIBUTION WIDTH 14.3 % (11.5-14.5); WHITE BLOOD COUNT 9.1 X10'3 (4.5-11.0)
[2023-03-07 19:39] LABS: ALANINE AMINOTRANSFERASE 109 U/L (12-78); ALBUMIN 4.1 G/DL (3.4-5.0); ALKALINE PHOSPHATASE 85 IU/L (46-116); ANION GAP 14 (8-16); ASPARTATE AMINO TRANSFERASE 50 U/L (10-37); BILIRUBIN,TOTAL 0.5 MG/DL (0.1-1.0); BLOOD UREA NITROGEN 12 MG/DL (7-18); BUN/CREATININE RATIO 9.7 (10.0-20.0); CALCIUM 10.1 MG/DL (8.5-10.1); CHLORIDE 100 MMOL/L (99-107); CREATININE 1.24 MG/DL (0.60-1.10); GLUCOSE 218 MG/DL (70-104); LIPASE 99 U/L (73-393); POTASSIUM 4.2 MMOL/L (3.5-5.1); SODIUM 139 MMOL/L (135-145); TOTAL CARBON DIOXIDE 25.3 MMOL/L (24-32); TOTAL PROTEIN 8.2 G/DL (6.4-8.2); eCRCL 85 ML/MIN; eGFR 64 ML/MIN
[2023-03-07 20:25] LABS: BILIRUBIN,URINE NEGATIVE (Neg); CLARITY,URINE TURBID (Clear); COLOR,URINE AMBER (Yellow); GLUCOSE, URINE NEGATIVE (Neg); KETONES,URINE TRACE mg/dl (Neg); LEUKOCYTE ESTERASE ,URINE TRACE (Neg); OCCULT BLOOD,URINE LARGE (Neg); PH,URINE 6.5 (4.8-8.0); PROTEIN,URINE >=300 mg/dl (Neg)
[2023-03-07 20:30] LABS: CREATINE KINASE 135 U/L (39-308)
[2023-03-07 20:37] LABS: NITRITES, URINE NEGATIVE (Neg); UA COLLECTION TYPE CLN CATCH MIDSTREAM
[2023-03-07 20:41] LABS: RBC,URINE TNTC /HPF (0-2); SQUAMOUS EPITHELIAL CELL,UR FEW /LPF (FEW)
[2023-03-07 20:42] LABS: CAL OXALATE CRYSTALS 4+ /HPF (NEGATIVE)
[2023-03-07 20:43] LABS: BACTERIA,URINE NONE SEEN /HPF (Neg); WBC,URINE 30-50 /HPF (0-4)
[2023-03-07] MEDS ORDERED: CefTRIAXone 2gm/D5W 50ml BAG 50 ML IV ONE (21:00)
[2023-03-07] MEDS ORDERED: ONDA4TAB12 PO (21:08)
[2023-03-07] MEDS ORDERED: CEPH-585 PO (21:08)
[2023-03-07] MEDS ORDERED: FLO0.4C PO (21:08)
[2023-03-07] MEDS ORDERED: OXYC-145 PO (21:08)
[2023-03-07 21:28] VITALS: BP 147/94; PULSE 91; RESP 16; O2SAT 96
== END 2023-03-07 21:29 | disposition home or self-care (01) ==
LOC: ER 18:34
DX: N20.0 Calculus of kidney (principal); N39.0 Urinary tract infection, site not specified; Z90.49 Acquired absence of other specified parts of digestive tract; Z98.890 Other specified postprocedural states; Z56.0 Unemployment, unspecified; Z88.5 Allergy status to narcotic agent; Z79.899 Other long term (current) drug therapy
CPT/HCPCS: 36415; 80053; 81001; 82550; 83690; 85025; 87088; 96361; 96374; 96375; 99284; J0696; J1885; J2405; J7030

== ENCOUNTER 2023-06-05 09:06 | Emergency (ER) | payer MEDICAID, OTHER ==
[~2023-06-05] VITALS: Ht 185.4 cm; Wt 148.2 kg
[~2023-06-05 09:06] MED LIST changes: +CEPH-585 PO; +ONDA4TAB12 PO; +OXYC-145 PO
[2023-06-05 09:29] VITALS: BP 195/140; PULSE 98; TEMP 98.3; O2SAT 96
[2023-06-05] MEDS ORDERED: HYDROmorphone inj. 0.5 MG/0.5 ML DISP.SYRIN IM ONE (09:30)
[2023-06-05 09:34] VITALS: RESP 19
[2023-06-05] MEDS ORDERED: TETanus/Pertussis (Acell)/Diphther VAC/PF (Tdap-Adult) 0.5ml syringe IMVAC ONE (10:00)
[2023-06-05] MEDS ORDERED: BUPIVAcaine 0.5% W/EPI /PF 30ml vial IJ STA (10:25)
[2023-06-05] MEDS ORDERED: CEPH-585 PO (12:11)
[2023-06-05] MEDS ORDERED: NAPR-56 PO (12:11)
[2023-06-05] MEDS ORDERED: bacitracin 15gm ointment TP ONE (12:15)
== END 2023-06-05 12:54 | disposition home or self-care (01) ==
LOC: ER 09:06
DX: S62.521B Displaced fracture of distal phalanx of right thumb, initial encounter for open fracture (principal); X58.XXXA Exposure to other specified factors, initial encounter; Y93.89 Activity, other specified; Y92.89 Other specified places as the place of occurrence of the external cause; Y99.8 Other external cause status
CPT/HCPCS: 12002; 73140; 90471; 90715; 96372; 99284; J1170; J7030; A6449

== ENCOUNTER 2023-09-11 20:44 | Emergency (ER) | payer MEDICAID, OTHER ==
[~2023-09-11] VITALS: Ht 182.9 cm; Wt 145.0 kg
[2023-09-11] MEDS ORDERED: GABA600T13 PO (23:38)
[2023-09-11 23:46] VITALS: BP 144/86; PULSE 86; RESP 18; TEMP 97.8; O2SAT 98
== END 2023-09-11 23:49 | disposition home or self-care (01) ==
LOC: ER 20:44
DX: G62.9 Polyneuropathy, unspecified (principal); Z88.5 Allergy status to narcotic agent; Z79.899 Other long term (current) drug therapy; Z79.2 Long term (current) use of antibiotics; Z90.49 Acquired absence of other specified parts of digestive tract
CPT/HCPCS: 99283

== ENCOUNTER 2024-07-13 12:14 | Emergency (ER) | payer MEDICAID ==
[~2024-07-13] VITALS: Ht 182.9 cm; Wt 137.5 kg
[~2024-07-13 12:14] MED LIST changes: -BUPR300T53 PO; -CEPH-585 PO; +GABA-1405 PO; +METF-1203 PO; -ONDA4TAB12 PO; -OXYC-145 PO
[2024-07-13 12:20] VITALS: TEMP 98.2
[2024-07-13] MEDS ORDERED: LIDO700A32 TD (14:19)
[2024-07-13] MEDS ORDERED: CYCL-1 PO (14:19)
[2024-07-13] MEDS: LIDOcaine 5% patch TP STA (14:39)
[2024-07-13 14:43] VITALS: BP 136/68; PULSE 79; RESP 15; O2SAT 98
== END 2024-07-13 14:45 | disposition home or self-care (01) ==
LOC: ER 12:14
DX: M25.511 Pain in right shoulder (principal); Z88.5 Allergy status to narcotic agent; Z88.8 Allergy status to other drugs, medicaments and biological substances; Z90.49 Acquired absence of other specified parts of digestive tract; Z79.899 Other long term (current) drug therapy
CPT/HCPCS: 73030; 99283

== ENCOUNTER 2025-01-10 16:25 | Emergency (ER) | payer MEDICAID ==
[~2025-01-10] VITALS: Ht 182.9 cm; Wt 134.9 kg
[~2025-01-10 16:25] MED LIST changes: +CYCL-1 PO; +LIDO-52 TD
--- NOTE | 2025-01-10 16:44 | Physician Documentation ---
History of Present Illness ~ Chief Complaint: Head Injury Stated Complaint: "FALL HIT HEAD" Time Seen by MD: 16:54 OK to notify your PCP?: Yes Primary Medical Doctor: [facility] dr aden HPI Patient is a 44-year-old male that reports an emergency department for evaluation of a head injury sustained earlier today after he hit his head on his trailer. Denies any LOC at the time. Demonstrates an abrasion to the top of his head. Does report some nausea and dizziness. No visual acuity neuro exam is without abnormalities. Tetanus within 5 years?: No (unsure) Medication Reconciliation Allergies: Coded Allergies: hydrocodone (Unverified Allergy, Unknown, "ELEPHANT SITIING ON CHEST", 06/05/23) PT CAN TAKE PERCOCET WITH NO PROBLEMS PT CAN TAKE MORPHINE WITH NO PROBLEMS Scheduled Cyclobenzaprine* (Cyclobenzaprine*), 1 TAB PO HS Gabapentin (Gabapentin), 1 TAB PO Q8H Lidocaine (Lidoderm), 1 PATCH TD DAILY Metformin HCl (Metformin HCl), 1 TAB PO BID, (Reported) Past Medical History Past Medical History: Headache, Kidney Stones Past Surgical History: cholecystectomy, orthopedic surgeries, other Other Past Surgical History: Left bicep tendon surgery, rotator cuff surgery Alcohol Use: Occasionally Drug Use: none Lives with: Spouse Lives In: Home Occupation: employed Review of Systems All Other Systems at this time: Reviewed and Negative ROS As stated above in the HPI, otherwise all systems are reviewed and negative. Physical Exam Vital Signs: Temperature: 96.9, Heart Rate: 112, Respiratory Rate: 15, BP: 151/102, Pulse Oximetry: 96, Weight: 134.900 Physical Exam VITALS: Reviewed and as above. GENERAL: Alert, no apparent distress. HEENT: Normocephalic, atraumatic, PERRL, EOMI, dry mucosa, no erythema, abrasion to her RESPIRATORY: Lungs clear, normal breath sounds, no respiratory distress. CHEST: No accessory muscle use, no retractions CV: Regular rate, rhythm, no edema, no murmur, No: JVD GI: Soft, non-tender, bowels sounds present, no rebound, guarding, or rigidity BACK: No CVA tenderness, or swelling MUSCULOSKELETAL No deformities, no, tenderness you had neck and shoulders SKIN: Warm and dry, no rash NEURO: Oriented x4, No motor or sensory deficit PSYCH: Normal mood and affect, no agitation Progress Results/Orders Results/Orders Vital Signs 01/10/25 01/10/25 01/10/25 01/10/25 16:30 18:36 18:38 19:19 Temp 96.9 Pulse 112 100 Resp 15 19 16 16 B/P (MAP) 151/102 104/59 (74) Pulse Ox 96 99 O2 Flow Rate 0 01/10/25 19:46 Temp 96.9 B/P (MAP) Medical Decision Making Findings Given work up, exam, and history low suspicion for intracranial hemorrhage or trauma, carotid or vertebral artery dissection, intrathoracic trauma (pulmonary contusion, blunt cardiac trauma, pneumothorax, hemothorax, cardiac tamponade, rib fractures), intra abdominal trauma (no liver, spleen, or renal lacerations, doubt hollow viscus injury given soft abdomen on repeat exams, no free air seen, consistently normotensive), extremity fracture, extremity dislocation, compartment syndrome. Departure Disposition: HOME / SELF CARE / HOMELESS Impression: Primary Impression: Light headedness Additional Impression: Injury of head Condition: Stable Discharge Instructions: Head Injuries, Adult Additional Instructions: Marguerite all you for evaluation of a head strike with a small abrasion to the superior anterior aspect of her head. It was reported. Diagnostic exams and imaging are negative for any concerning findings today. If he has continued to have dizziness or developed any nausea please return to the ER. Follow up with her primary care provider for any additional questions or concerns worsening of recurrent symptoms again or any additional concerning symptoms please report to the ER. Please stay hydrated position herself in a position of comfort while resting Tylenol ibuprofen as needed.. Referrals: NO PRIMARY CARE PROVIDER (PCP) Education Educated: Patient Educated regarding: diagnosis, need for follow up Signature Scribe Signature: No scribe Attestation: No scribe TAMMI FABIAN Jan 10, 2025 16:44 MARGUERITE TRIVEDI MD Jan 12, 2025 06:06
--- NOTE | 2025-01-10 17:26 | RADIOLOGY REPORT ---
CT CT HEAD Indication: Head strike with associated nausea and dizziness. EXAM DATE: 01/10/2025 05:06 PM COMPARISON: None TECHNIQUE: CT of the head without intravenous contrast. RADIATION DOSE: CTDIvol: 61 mGy, DLP: 1106 mGy*cm FINDINGS: There is no intracranial hemorrhage. There is no extra-axial fluid, mass, mass effect or midline shif t. The ventricles are midline and normal in size. Basilar cisterns are patent. Dasilva-white differentia tion is maintained. The mastoids are well pneumatized. Maxillary sinus mucosal retention cyst / polyp measuring 2.4 cm.. Imaged portion of the orbits are unremarkable. IMPRESSION: No intracranial hemorrhage or mass effect. Maxillary sinus disease
--- NOTE | 2025-01-10 17:39 | RADIOLOGY REPORT ---
COMPUTERIZED TOMOGRAPHY OF THE CERVICAL SPINE, NONCONTRAST REASON FOR EXAM: Head strike with associated nausea and dizziness. COMPARISON: None TECHNIQUE: CT of the entire cervical spine was performed in routine fashion with sagittal and farmer l reconstructions. Soft tissues and bone windows were filmed. Radiation optimization: All CT scans a t this facility use at least one of these dose optimization techniques: Automated exposure control mA and/or kV adjustment per patient size (includes targeted exams where dose is matched to clinical ind ication) or iterative reconstruction. RADIATION DOSE: CTDI: 25 mGy DLP: 637 mGy-cm FINDINGS: The vertebral bodies are normal in height and alignment with no evidence of fracture. The re is maintenance of the normal cervical lordosis. There is mild disc height loss at C5-C6. There is no listhesis. There is mild facet joint narrowing at C2-C3. The prevertebral soft tissues are unrema rkable. IMPRESSION: No evidence of cervical spine fracture or subluxation.
[2025-01-10 18:36] VITALS: BP 104/59; PULSE 100; O2SAT 99
[2025-01-10 19:19] VITALS: RESP 16
[2025-01-10] MEDS: ketorolac trometh 15mg/ml vial 15 MG/ML ML IM ONE (19:19)
[2025-01-10 19:46] VITALS: TEMP 96.9
== END 2025-01-10 19:47 | disposition home or self-care (01) ==
LOC: ER 16:25
DX: S00.81XA Abrasion of other part of head, initial encounter (principal); R42 Dizziness and giddiness; R11.0 Nausea; Z90.49 Acquired absence of other specified parts of digestive tract; Z88.5 Allergy status to narcotic agent; Z79.899 Other long term (current) drug therapy; Z87.442 Personal history of urinary calculi; Z72.89 Other problems related to lifestyle; W22.8XXA Striking against or struck by other objects, initial encounter; Y93.89 Activity, other specified; Y92.89 Other specified places as the place of occurrence of the external cause; Y99.8 Other external cause status
CPT/HCPCS: 70450; 72125; 96372; 99285; J1885